=== PATIENT | male | born 1990 | race African-American/Black ===

== ENCOUNTER 2023-10-14 14:15 | Observation (INO) | payer OTHER ==
--- NOTE | 2023-10-14 14:39 | ED ---
Chest Pain HPI - General Chief Complaint: Chest Pain Stated Complaint: chest pain Time Seen by Provider: 10/14/23 14:19 Source: patient, EMS, RN notes reviewed, old records reviewed Mode of arrival: EMS Limitations: no limitations - History of Present Illness Initial Comments: This is a 33-year-old male to the ER for evaluation today. Patient presents today for evaluation regards to chest pain palpitations shortness of breath and lower extremity edema significant. Patient has long history of IV drug abuse MD Complaint: chest pain -: days(s) Onset: during rest, during exertion Pain Location: substernal Pain Radiation: none, LUE Severity: mild Severity scale (1-10): 1 Quality: tightness, heaviness Consistency: constant Improves With: nothing - Related Data Home Medications Medication Instructions Recorded Confirmed Acetaminophen Tab [Tylenol] 650 mg PO Q4H PRN 10/14/23 10/14/23 Ibuprofen [Motrin Ib] 600 mg PO Q6H PRN 10/14/23 10/14/23 Magnesium Hydroxide [Milk of 2,400 mg PO BID PRN 10/14/23 10/14/23 Magnesia] Melatonin 10 mg PO HS 10/14/23 10/14/23 PARoxetine HCL [Paxil] 40 mg PO DAILY 10/14/23 10/14/23 busPIRone HCl [Buspar] 10 mg PO TID 10/14/23 10/14/23 ondansetron HCL [Zofran] 8 mg PO Q6H PRN 10/14/23 10/14/23 traZODone HCL [Desyrel] 50 - 150 mg PO HS PRN 10/14/23 10/14/23 Allergies Allergy/AdvReac Type Severity Reaction Status Date / Time promethazine [From Phenergan] Allergy Unknown Verified 10/14/23 17:03 Review of Systems ROS Statement: Those systems with pertinent positive or pertinent negative responses have been documented in the HPI. ROS Other: All systems not noted in ROS Statement are negative. EKG Findings - EKG Comments: EKG Findings:: EKG is sinus 74 CT 119 QRS 93 QTc 384 Past Medical History Past Medical History: No Reported History History of Any Multi-Drug Resistant Organisms: None Reported Past Surgical History: No Surgical Hx Reported Past Psychological History: No Psychological Hx Reported Smoking Status: Never smoker Past Alcohol Use History: None Reported Past Drug Use History: Cocaine General Exam Limitations: no limitations General appearance: alert, in no apparent distress Head exam: Present: atraumatic, normocephalic, normal inspection Eye exam: Present: normal appearance, PERRL, EOMI. Absent: scleral icterus, conjunctival injection, periorbital swelling ENT exam: Present: normal exam, mucous membranes moist Neck exam: Present: normal inspection. Absent: tenderness, meningismus, lymphadenopathy Respiratory exam: Present: normal lung sounds bilaterally. Absent: respiratory distress, wheezes, rales, rhonchi, stridor Cardiovascular Exam: Present: regular rate, normal rhythm, normal heart sounds. Absent: systolic murmur, diastolic murmur, rubs, gallop, clicks GI/Abdominal exam: Present: soft, normal bowel sounds. Absent: distended, tenderness, guarding, rebound, rigid Extremities exam: Present: normal inspection, full ROM, normal capillary refill. Absent: tenderness, pedal edema, joint swelling, calf tenderness Back exam: Present: normal inspection Neurological exam: Present: alert, oriented X3, CN II-XII intact Psychiatric exam: Present: normal affect, normal mood Skin exam: Present: warm, dry, intact, normal color. Absent: rash Course Vital Signs 10/14/23 10/14/23 14:24 16:16 Temperature 98.1 F Pulse Rate 85 74 Respiratory 18 18 Rate Blood Pressure 128/72 126/84 O2 Sat by Pulse 98 98 Oximetry - Reevaluation(s) Reevaluation #1: 10/14/23 16:55 Medical records reviewed Reevaluation #2: 10/14/23 16:57 Patient has no change in symptoms here in the ER 7 Reevaluation #3: 10/14/23 16:57 Patient informed of results and questions answered Studies Chest x-ray is negative for acute disease Ultrasound bilateral lower extremity edema negative for acute disease Reevaluation #4: Was pt. sent in by a medical professional or institution (, PA, REHABILITATION SERVICES COORDINATOR, urgent care, hospital, or prison...) When possible be specific @ -no Did you speak to anyone other than the patient for history (EMS, parent, family, police, friend...)? What history was obtained from this source @ -no Did you review nursing and triage notes (agree or disagree)? Why? @ -agree Are old charts reviewed (outside hosp., previous admission, EMS record, old EKG, old radiological studies, urgent care reports/EKG's, prison records)? Report findings @ -yes Differential Diagnosis (chest pain, altered mental status, abdominal pain women, abdominal pain men, vaginal bleeding, weakness, fever, dyspnea, syncope, headache, dizziness, GI bleed, back pain, seizure, CVA, palpatations, mental health, musculoskeletal)? @ -prior EKG interpreted by me (3pts min.). @ -yes X-rays interpreted by me (1pt min.). @ -yes negative for acute disease CT interpreted by me (1pt min.). @ -no U/S interpreted by me (1pt. min.). @ -no What testing was considered but not performed or refused? (CT, X-rays, U/S, labs)? Why? @ -none What meds were considered but not given or refused? Why? @ -none Did you discuss the management of the patient with other professionals (professionals i.e. , PA, REHABILITATION SERVICES COORDINATOR, lab, RT, psych nurse, social work nurse, supervisor paper testing, teacher, business liaison officer, correctional case manager)? Give summary @ -no Was smoking cessation discussed for >3mins.? @ -no Was critical care preformed (if so, how long)? @ -no Were there social determinants of health that impacted care today? How? (Homelessness, low income, unemployed, alcoholism, drug addiction, transportation, low edu. Level, literacy, decrease access to med. care, alf, rehab)? @ -none Was there de-escalation of care discussed even if they declined (Discuss DNR or withdrawal of care, Hospice)? DNR status @ -no What co-morbidities impacted this encounter? (DM, HTN, Smoking, COPD, CAD, Cancer, CVA, ARF, Chemo, Hep., AIDS, mental health diagnosis, sleep apnea, morbid obesity)? @ -none Was patient admitted / discharged? Hospital course, mention meds given and route, prescriptions, significant lab abnormalities, going to OR and other pertinent info. @ - Undiagnosed new problem with uncertain prognosis? @ -no Drug Therapy requiring intensive monitoring for toxicity (Heparin, Nitro, Insulin, Cardizem)? @ -no Were any procedures done? @ -no Diagnosis/symptom? @ - Acute, or Chronic, or Acute on Chronic? @ -Acute Uncomplicated (without systemic symptoms) or Complicated (systemic symptoms)? @ -Complicated Side effects of treatment? @ -no Exacerbation, Progression, or Severe Exacerbation? @ -exacerbation Poses a threat to life or bodily function? How? (Chest pain, [place], [place], pneumonia, PE, COPD, DKA, ARF, appy, cholecystitis, CVA, Diverticulitis, Homicidal, Suicidal, threat to staff... and all critical care pts) @ -yes Reevaluation #5: Differential Palpitations Ventricular arrhythmias, atrial arrhythmias, myocardial infarction, anemia, thyrotoxicosis, electrolyte imbalance, hypokalemia, pulmonary embolism, pulmonary disease, drugs, alcohol, anxiety, stress.... This is not meant to be an all-inclusive list. - Consultations Consultation #1: Spoke with [facility] who agreed to admit this patient Chest Pain MDM - MDM 33 male will be admitted for cardiology evaluation and echo regarding significant lower extremity edema palpitations shortness of breath and chest pain with history of drug abuse and probable cardiomyopathy Disposition Clinical Impression: Atypical chest pain, Chest pain, Palpitations, Dyspnea, Bilateral leg edema Disposition: ADMITTED IP TO THIS HOSP Condition: Fair Is patient prescribed a controlled substance at d/c from ED?: No Time of Disposition: 16:40
--- NOTE | 2023-10-14 15:16 | XR ---
EXAMINATION TYPE: XR chest 2V DATE OF EXAM: 10/14/2023 COMPARISON: NONE HISTORY: Chest pain TECHNIQUE: Frontal and lateral views of the chest are obtained. FINDINGS: There is no focal air space opacity. No evidence for pneumothorax. No pleural effusion. The cardiac silhouette size is within normal limits. The osseous structures are grossly intact. IMPRESSION: 1. No acute cardiopulmonary process.
[2023-10-14 15:17] LABS: African American GFR (CKD) >90 (>60 ml/min/1.73 sqM); Albumin 3.9 g/dL (3.5-5.0); Alkaline Phosphatase 50 U/L (38-126); Anion Gap 3 mmol/L; Blood Urea Nitrogen 16 mg/dL (9-20); Calcium 9.3 mg/dL (8.4-10.2); Carbon Dioxide 25 mmol/L (22-30); Chloride 109 mmol/L (98-107); Glucose 93 mg/dL (74-99); Lipase 81 U/L (23-300); Non-African American GFR(CKD) >90 (>60 ml/min/1.73 sqM); Sodium 137 mmol/L (137-145); Total Bilirubin 0.5 mg/dL (0.2-1.3); Total Protein 6.9 g/dL (6.3-8.2)
[2023-10-14 15:18] LABS: ALT 50 U/L (4-49); AST 41 U/L (17-59); Magnesium 2.1 mg/dL (1.6-2.3); Potassium 5.1 mmol/L (3.5-5.1)
[2023-10-14 15:25] LABS: NT-Pro-B-Type Natriuretic Pept <20 pg/mL
[2023-10-14 16:09] LABS: INR 0.9 (<1.2); Partial Thromboplastin Time 23.7 sec (22.0-30.0)
[2023-10-14 17:12] LABS: Basophils % (A) 0 %; Eosinophils # (A) 0.1 k/uL (0-0.7); Eosinophils % (A) 2 %; HCT 38.9 % (39.0-53.0); HGB 12.6 gm/dL (13.0-17.5); Lymphocytes # (A) 1.6 k/uL (1.0-4.8); Lymphocytes % (A) 27 %; MCH 29.7 pg (25.0-35.0); MCHC 32.4 g/dL (31.0-37.0); MCV 91.6 fL (80.0-100.0); Mean Platelet Volume 8.5; Monocytes # (A) 0.4 k/uL (0-1.0); Monocytes % (A) 7 %; Neutrophils # (A) 3.7 k/uL (1.3-7.7); Neutrophils % (A) 62 %; Platelet Count 212 k/uL (150-450); RBC 4.24 m/uL (4.30-5.90); RDW 13.2 % (11.5-15.5)
--- NOTE | 2023-10-14 17:28 | US ---
EXAMINATION TYPE: US venous doppler duplex LE BI DATE OF EXAM: 10/14/2023 4:21 PM COMPARISON: NONE CLINICAL INDICATION: Male, 33 years old with history of edema; Edema. No hx of DVT. SIDE PERFORMED: Bilateral TECHNIQUE: The lower extremity deep venous system is examined utilizing real time linear array sonog micheline with graded compression, doppler sonography and color-flow sonography. VESSELS IMAGED: Common Femoral Vein Deep Femoral Vein Greater Saphenous Vein * Femoral Vein Popliteal Vein Small Saphenous Vein * Proximal Calf Veins (* superficial vessels) Right Leg: No evidence of DVT. Left Leg: No evidence of DVT. IMPRESSION:
[2023-10-14] MEDS: ASPIRIN 81 MG PO STA (18:34)
[2023-10-14] MEDS: MORPHINE SULFATE 4 MG/ML SYRINGE IV PRN (22:45)
[2023-10-15] MEDS: NITROGLYCERIN SL TABS 0.4 MG TAB SUBLINGUAL PRN (01:44)
[2023-10-15 09:13] VITALS: RESP 16
[2023-10-15] MEDS ORDERED: MAGNESIUM HYDROXIDE 2,400 MG/30 ML CUP PO PRN (12:47)
[2023-10-15] MEDS ORDERED: ACETAMINOPHEN TAB 325 MG TAB PO PRN (12:47)
[2023-10-15] MEDS ORDERED: IBUPROFEN 600 MG TAB PO PRN (12:47)
[2023-10-15] MEDS ORDERED: ONDANSETRON 4 MG TAB PO PRN (12:47)
--- NOTE | 2023-10-15 13:25 | HP ---
HISTORY AND PHYSICAL This is a combined history and physical and discharge summary. CHIEF COMPLAINT: Chest pain. HISTORY OF PRESENT ILLNESS: This is a 33-year-old gentleman with a past medical history of IV drug abuse, was admitted to [facility]. Apparently, the patient's sister got murdered recently. The patient is having a lot of stress and patient complained of multiple symptomatology including leg swelling. Cardiology saw the patient, recommended a stress test and 2D echo. The stress test and 2D echo is okay and cleared by Cardiology. The patient will be discharged back to [facility] for continued rehab. There is no history of any fever, rigors, or chills. PAST MEDICAL HISTORY: Reviewed include IV substance abuse, rest of the history and chart is also reviewed. HOME MEDICATIONS: Include Zofran, rest of medications reviewed. ALLERGIES: ntd FAMILY HISTORY: No history of heart disease or strokes in the family. SOCIAL HISTORY: History of substance abuse. REVIEW OF SYSTEMS: A 14-point review is negative except as mentioned earlier. PHYSICAL EXAMINATION: VITAL SIGNS: Pulse 63, blood pressure 117/79, and respirations 16. CHEST: Clear to auscultation. CARDIOVASCULAR: S1, S2. ABDOMEN: Soft. LEGS: No edema, no swelling. NERVOUS SYSTEM: Nonfocal. SKIN: No ulcer, rash, or bleeding. JOINTS: No active deforming arthropathy. LABORATORY DATA: Reviewed. ASSESSMENT: 1. Chest pain for evaluation, rule out coronary artery disease. 2. History of IV substance abuse. 3. Social stressors and depression. 4. Anemia, normocytic, mild. RECOMMENDATIONS AND DISCUSSION: This 33-year-old gentleman presented with multiple medical issues. At this time, I recommended to continue current medications. I would follow the patient closely with a 2D echo and stress echo. If the 2D echo and stress echo are normal, the patient can be discharged back to [facility] today. Please refer to the previous discharge medication reconciliation for list of medications. I would also recommend close followup with primary physician regarding followup of above-mentioned medical issues. Overall prognosis guarded, but currently the patient is stable. Discussed with the patient who understands. MMODL / IJN: [id number] / MTDD
--- NOTE | 2023-10-15 13:58 | CA ---
Stress Echo Report Rufus Case Age: 33 Gender: M : 1990 Exam Date: 10/15/2023 11:39 Exam Location: [facility] Ht (in): 69 Wt (lb): 190 Ordering Physician: Andie Henry Referring Physician: [id number] Paraprofessional: Myrna Steele RDCS Technologist Procedure CPT: Indication: Chest Pain ICD-9 Codes: Rhythm: Patient History: CHEST PAIN, DIFFICULTY IN BREATHING, PALPITATIONS, NUMBNESS IN FACE/NECK, FAMILY HX OF HEART DISEASE Cardiac Medications: Medications in past 24 hours: Contrast: Stress Results Protocol: Valerio Total dose(mL): Exercise Duration (min:sec): 10:[address] Depression (mm): Angina Score: Blair Score: METS: 13.0 Resting HR: 97 Resting BP: 133 / 73 Peak HR: 165 Peak BP: 168 / 65 Max Predicted HR: 188 88 % Max Predicted HR Target HR: 160 Double Product: [id number] Stress Summary: The patient's target heart rate was achieved BP Response: Reason for Termination: MAX EXERTION/TARGET HR Cardiac Symptoms: CHEST PAIN DURING EXERCISE AND RECOVERY ECG Analysis Resting ECG: Normal sinus rhythm, normal ECG Stress ECG: No abnormal ST/T wave changes with exercise Arrhythmia: None Echo Analysis Resting Echo: Normal resting echocardiogram. Peak Echo Analysis: Normal treadmill stress echocardiogram. MEASUREMENTS (Male/Female) Normal Values CONCLUSIONS 1. Good exercise tolerance 2. Normal electrocardiographic response to exercise 3. Normal stress echocardiogram with no evidence of stress- induced ischemia Dr. Janelle Sidhu MD (Electronically Signed) Final Date: 15 Oct 2023 13:57
--- NOTE | 2023-10-15 14:05 | P.CRDCN ---
History of Present Illness Consult date: 10/15/23 Reason for Consult (text): Questionable cardiomyopathy History of present illness: History of present illness: This is a 33-year-old male with past medical history of substance abuse with crack cocaine. Patient normally follows with a clinic in [place]. He does not have a brazer resistance and has not had a cardiology workup in the past. Patient apparently was at [facility]. His last drug use of crack was 2 months ago. He developed chest pain while he was in group therapy and was sitting. He also developed shortness of breath, sweats. He states he has never had this sensation before. Pain is worse with deep breathing. He does complain of dizziness and palpitations. He denies history of hypertension or diabetes. He states he has had some lower extremity edema for the last couple of days and his legs were hurting him. He denies any fever or chills and no cough. Patient also complains of chronic blood in his urine. No history of CVA or stroke. No blood in his stools. Patient denies history of smoking and no alcohol abuse. EKG sinus rhythm with nonspecific T wave changes. Chest x-ray: No acute finding WBC 6, hemoglobin 12.6. INR 0.9. Troponin negative x 3. Creatinine 0.97, potassium 5.1. proBNP less than 20. Home cardiac medications: None Review Of Systems: At the time of my exam: CONSTITUTIONAL: Denies fever or chills. HEENT: Denies blurred vision, vision changes, or eye pain. Denies hemoptysis CARDIOVASCULAR: Denies chest pain. Denies orthopnea. Denies PND. Denies palpitations RESPIRATORY: Denies shortness of breath. GASTROINTESTINAL: Denies abdominal pain. Denies nausea or vomiting. HEMATOLOGIC: Denies bleeding disorders. GENITOURINARY: Denies any blood in urine. SKIN: Denies pruitis. Denies rash. Physical examination: Gen: This is a 33-year-old male in no acute distress VS: reviewed, blood pressure 130/75, heart rate 58, pulse ox 95% on room air. HEENT: Head is atraumatic, normocephalic. Pupils equal, round. Sclerae is anicteric. NECK: Supple. No JVD. LUNGS: Clear to auscultation. No wheezes or rhonchi. No intercostal retractions. HEART: Regular rate and rhythm. No murmur. Positive chest wall tenderness. ABDOMEN: Soft No tenderness. EXTREMITIES: No pedal edema. No calf tenderness. NEUROLOGICAL: Patient is awake, alert and oriented x3. Assessment: Atypical chest pain, acute coronary syndrome ruled out Substance abuse with crack Plan: Resume patient's home cardiac medications Obtain stress echocardiogram reported good exercise tolerance, normal electrocardiographic response to exercise, normal stress echocardiogram with no evidence of stress-induced ischemia. Obtain 2-D echocardiogram and Doppler study to assess cardiac structure and function If testing is unremarkable, patient is cleared for discharge from cardiology and may follow-up with his primary care physician. Thank you kindly for this consultation. Nurse practitioner note has been reviewed, I agree with documented findings and plan of care. Patient was seen and examined. Past Medical History Past Medical History: No Reported History History of Any Multi-Drug Resistant Organisms: None Reported Past Surgical History: No Surgical Hx Reported Past Psychological History: No Psychological Hx Reported Smoking Status: Never smoker Past Alcohol Use History: None Reported Past Drug Use History: Cocaine Medications and Allergies Home Medications Medication Instructions Recorded Confirmed Type Acetaminophen Tab [Tylenol] 650 mg PO Q4H PRN 10/14/23 10/14/23 History Ibuprofen [Motrin Ib] 600 mg PO Q6H PRN 10/14/23 10/14/23 History Magnesium Hydroxide [Milk of 2,400 mg PO BID PRN 10/14/23 10/14/23 History Magnesia] Melatonin 10 mg PO HS 10/14/23 10/14/23 History PARoxetine HCL [Paxil] 40 mg PO DAILY 10/14/23 10/14/23 History busPIRone HCl [Buspar] 10 mg PO TID 10/14/23 10/14/23 History ondansetron HCL [Zofran] 8 mg PO Q6H PRN 10/14/23 10/14/23 History traZODone HCL [Desyrel] 50 - 150 mg PO HS PRN 10/14/23 10/14/23 History Allergies Allergy/AdvReac Type Severity Reaction Status Date / Time promethazine [From Phenergan] Allergy Unknown Verified 10/14/23 17:03 Physical Exam Vitals: Vital Signs Temp Pulse Resp BP Pulse Ox 10/15/23 06:30 58 L 96 H 130/75 95 10/15/23 05:29 67 19 127/81 99 10/15/23 02:00 63 16 116/64 96 10/15/23 01:40 59 L 18 125/69 96 10/14/23 21:43 65 16 119/60 95 10/14/23 16:16 74 18 126/84 98 10/14/23 14:24 98.1 F 85 18 128/72 98 Results 10/14/23 17:05 10/14/23 14:55 Cardiac Enzymes 10/14/23 10/14/23 10/14/23 Range/Units 14:55 14:55 17:30 AST 41 (17-59) U/L Troponin I 0.025 <0.012 (0.000-0.034) ng/mL 10/14/23 Range/Units 21:09 AST (17-59) U/L Troponin I <0.012 (0.000-0.034) ng/mL Coagulation 10/14/23 Range/Units 15:37 PT 10.0 (10.0-12.5) sec APTT 23.7 (22.0-30.0) sec CBC 10/14/23 10/14/23 Range/Units 14:55 17:05 WBC LOAN ADMINISTRATOR 6.0 RBC LOAN ADMINISTRATOR 4.24 L Hgb LOAN ADMINISTRATOR 12.6 L Hct LOAN ADMINISTRATOR 38.9 L Plt Count LOAN ADMINISTRATOR 212 Comprehensive Metabolic Panel 10/14/23 Range/Units 14:55 Sodium 137 (137-145) mmol/L Potassium 5.1 (3.5-5.1) mmol/L Chloride 109 H (98-107) mmol/L Carbon Dioxide 25 (22-30) mmol/L BUN 16 (9-20) mg/dL Creatinine 0.97 (0.66-1.25) mg/dL Glucose 93 (74-99) mg/dL Calcium 9.3 (8.4-10.2) mg/dL AST 41 (17-59) U/L ALT 50 H (4-49) U/L Alkaline Phosphatase 50 (38-126) U/L Total Protein 6.9 (6.3-8.2) g/dL Albumin 3.9 (3.5-5.0) g/dL Current Medications Generic Name Dose Route Start Last Admin Trade Name Freq PRN Reason Stop Dose Admin Aspirin 325 mg 10/15/23 09:00 Aspirin 325 Mg Tab PO DAILY NORA Atorvastatin Calcium 80 mg 10/15/23 09:00 Atorvastatin 80 Mg Tab PO DAILY [facility] Morphine Sulfate 4 mg 10/14/23 16:47 10/15/23 05:34 Morphine Sulfate 4 Mg/Ml Syringe IV 4 mg Q4HR PRN Administration Chest Pain Nitroglycerin 0.4 mg 10/14/23 16:47 10/15/23 01:44 Nitroglycerin Sl Tabs 0.4 Mg Tab SUBLINGUAL 0.4 mg Q5M PRN Administration Chest Pain 10/14/23 17:05 10/14/23 14:55
[2023-10-15] MEDS: ASPIRIN 325 MG TAB PO SCH (14:12)
[2023-10-15] MEDS: ATORVASTATIN 80 MG TAB PO SCH (14:12)
[2023-10-15] MEDS: busPIRone HCl 10 MG TAB PO SCH (14:16)
[2023-10-15] MEDS: PARoxetine 20 MG TAB PO SCH (14:16)
[2023-10-15 14:55] VITALS: BP 119/70; PULSE 76; TEMP 98.4
[2023-10-15] MEDS ORDERED: MELATONIN 5 MG TABLET PO SCH (21:00)
[2023-10-15 22:22] LABS: LDL Cholesterol,Calculated 140.7 mg/dL (0.0-131.0)
--- NOTE | 2023-10-16 07:12 | CA ---
Transthoracic Echo Report Name: Rufus Case Age: 33 Gender: M : 1990 Exam Date: 10/14/2023 17:06 Exam Location: [facility] Ht (in): 69 Wt (lb): 200 Ordering Physician: Abelardo Palma DO Attending/Referring Phys: [id number], Louie Wire Wrapper Machine Operator Marina Tay RDCS Procedure CPT: Indications: cm Cardiac Hx: Technical Quality: Good Contrast 1: Definity Total Dose (mL): 2 Contrast 2: Total Dose (mL): MEASUREMENTS (Male / Female) Normal Values 2D ECHO LV Diastolic Diameter PLAX 5.5 cm 4.2 - 5.9 / 3.9 - 5.3 cm LV Systolic Diameter PLAX 4.2 cm IVS Diastolic Thickness 1.2 cm 0.6 - 1.0 / 0.6 - 0.9 cm LVPW Diastolic Thickness 1.3 cm 0.6 - 1.0 / 0.6 - 0.9 cm LV Relative Wall Thickness 0.5 RV Internal Dim ED PLAX 2.6 cm LA Systolic Diameter LX 3.9 cm 3.0 - 4.0 / 2.7 - 3.8 cm LV Diastolic Volume MOD BP 107.4 cm??? 67 - 155 / 56 - 104 cm??? LV Systolic Volume MOD BP 53.0 cm??? / 19 - 49 cm??? LV Ejection Fraction MOD BP 50.7 % >= 55 % LV Cardiac Index MOD BP 1613.5 cm???/min???m??? LV Diastolic Volume MOD 4C 136.6 cm??? LV Systolic Volume MOD 4C 68.6 cm??? LV Ejection Fraction MOD 4C 49.7 % LV Cardiac Index MOD 4C 2015.1 cm???/min???m??? LV Diastolic Length 4C 7.3 cm LV Systolic Length 4C 6.1 cm LV Diastolic Volume MOD 2C 79.7 cm??? LV Systolic Volume MOD 2C 40.4 cm??? LV Ejection Fraction MOD 2C 49.3 % LV Cardiac Index MOD 2C 1165.2 cm???/min???m??? LV Diastolic Length 2C 6.8 cm LV Systolic Length 2C 6.0 cm LA Volume 63.9 cm??? / 22 - 52 cm??? LA Volume Index 30.1 cm???/m??? 16 - 28 cm???/m??? M-MODE Aortic Root Diameter MM 2.7 cm LA Systolic Diameter MM 3.7 cm LA Ao Ratio MM 1.4 AV Cusp Separation MM 2.1 cm DOPPLER MV Area PHT 2.3 cm??? Mitral E Point Velocity 83.8 cm/s Mitral A Point Velocity 57.9 cm/s Mitral E to A Ratio 1.4 MV Deceleration Time 333.5 ms FINDINGS Left Ventricle Left ventricular ejection fraction is estimated at 50-55 %. Mildly increased left ventricular wall thickness. Borderline systolic function Right Ventricle Normal right ventricular size. Right Atrium Mild right atrial dilatation. Left Atrium Mobile intra-atrial septum. Mildly increased left atrial volume. Mitral Valve Structurally normal mitral valve. Mild mitral regurgitation. Aortic Valve Trileaflet aortic valve. No aortic stenosis. No aortic regurgitation. Tricuspid Valve Structurally normal tricuspid valve. Trace tricuspid regurgitation. No evidence of pulmonary hypertension. Pulmonic Valve Structurally normal pulmonic valve. Trace pulmonic regurgitation. No pulmonic stenosis. Pericardium No pericardial or pleural effusion. Aorta Normal size aortic root and proximal ascending aorta. CONCLUSIONS 1. Left ventricular systolic function borderline normal 2. Mild mitral regurgitation Previewed by: Dr. Janelle Sidhu MD (Electronically Signed) Final Date: 16 Oct 2023 07:11
--- NOTE | 2023-10-16 10:05 | P.DS ---
Providers Date of admission: 10/14/23 16:49 Expected date of discharge: 10/15/23 Attending physician: Leroy Pozo Consults: 10/14/23 16:47 Consult Physician Urgent Consulting Provider: Janelle Sidhu Consult Reason/Comments: CM Do you want consulting provider notified?: Yes Primary care physician: Stated None Hospital Course: Final diagnosis Chest pain, ruled out coronary artery disease, stress test was negative History of IV substance abuse Social stressors and depression Anemia, normocytic, mild GI prophylaxis DVT prophylaxis Full code Discharge disposition Patient is being discharged in a stable condition with guarded prognosis to [place] for continued inpatient rehab. Patient will follow-up with his primary care provider in [place] in the outpatient setting upon discharge. Patient is to continue with current medications and close outpatient follow-up with primary care provider as well as cardiology where he resides. Total time taken is greater than 35 minutes. Hospital course This is a 33-year-old male who was recently admitted with chest pain being closely monitored. Patient had negative troponins and evaluated by cardiology recommending stress echo. Stress test was normal with no evidence of ischemia. 2D echo displayed an EF of 50 to 55% with mildly increased left ventricular wall thickness and borderline systolic function. Patient also noted to have mild right atrial dilatation with mobile intra-atrial septum mildly increased left atrial volume, trace tricuspid regurgitation with no evidence of pulmonary hypertension with a trace pulmonic regurgitation with no pericardial or pleural effusions noted. Patient does have family history of cardiac issues and strongly recommend risk factor modifications along with cardiology follow-up in the outpatient setting. Patient has been cleared by cardiology for discharge. Please refer to cardiology notes for further HPI. Patient will be discharged back to [place] rehab. Currently no reports of chest pain, shortness of breath, or palpitations. Patient is afebrile. No reports of nausea or vomiting and patient is tolerating diet. Patient will be discharged to [place] rehab today. Guarded prognosis given significant social issues. Physical exam: Gen: This is a 33-year-old male who is awake, alert and oriented x 3, well- developed, well-nourished HEENT: Head is atraumatic, normocephalic. Pupils equal, round. Sclerae is anicteric. NECK: Supple. No JVD. No lymphadenopathy. No thyromegaly. LUNGS: Clear to auscultation. No wheezes or rhonchi. No intercostal retractions. HEART: S1, S2 are muffled ABDOMEN: Soft. Bowel sounds are present. No masses. No tenderness. EXTREMITIES: No pedal edema. No calf tenderness. NEUROLOGICAL: Patient is awake, alert and oriented x3. Cranial nerves 2 through 12 are grossly intact. Please refer to medication reconciliation sheet for a list of medications. The impression and plan of care has been dictated by Alexa Hatfield, Nurse Practitioner as directed. Dr. Sánchez MD I have performed a history and examination and MDM of this patient, discussed the same with the dictator, and agree with the dictator's assessment and plan as written ,documented as a scribe. Based on total visit time, I have performed more than 50% of the visit. Patient Condition at Discharge: Fair Plan - Discharge Summary Discharge Rx Participant: Yes New Discharge Prescriptions: New Pantoprazole [Protonix] 40 mg PO DAILY #30 tab Atorvastatin [Lipitor] 80 mg PO DAILY #30 tab Nitroglycerin Sl Tabs [Nitrostat] 0.4 mg SUBLINGUAL Q5M PRN #10 tab PRN Reason: Chest Pain Continue traZODone HCL [Desyrel] 50 - 150 mg PO HS PRN PRN Reason: Insomnia Melatonin 10 mg PO HS busPIRone HCl [Buspar] 10 mg PO TID ondansetron HCL [Zofran] 8 mg PO Q6H PRN PRN Reason: Nausea And Vomiting Acetaminophen Tab [Tylenol] 650 mg PO Q4H PRN PRN Reason: Pain Ibuprofen [Motrin Ib] 600 mg PO Q6H PRN PRN Reason: Pain Magnesium Hydroxide [Milk of Magnesia] 2,400 mg PO BID PRN PRN Reason: Gi Upset PARoxetine HCL [Paxil] 40 mg PO DAILY Discharge Medication List Acetaminophen Tab [Tylenol] 650 mg PO Q4H PRN 10/14/23 [History] Ibuprofen [Motrin Ib] 600 mg PO Q6H PRN 10/14/23 [History] Magnesium Hydroxide [Milk of Magnesia] 2,400 mg PO BID PRN 10/14/23 [History] Melatonin 10 mg PO HS 10/14/23 [History] PARoxetine HCL [Paxil] 40 mg PO DAILY 10/14/23 [History] busPIRone HCl [Buspar] 10 mg PO TID 10/14/23 [History] ondansetron HCL [Zofran] 8 mg PO Q6H PRN 10/14/23 [History] traZODone HCL [Desyrel] 50 - 150 mg PO HS PRN 10/14/23 [History] Atorvastatin [Lipitor] 80 mg PO DAILY #30 tab 10/15/23 [Rx] Nitroglycerin Sl Tabs [Nitrostat] 0.4 mg SUBLINGUAL Q5M PRN #10 tab 10/15/23 [Rx] Pantoprazole [Protonix] 40 mg PO DAILY #30 tab 10/15/23 [Rx] Follow up Appointment(s)/Referral(s): None,Stated [Primary Care Provider] - 1-2 days Activity/Diet/Wound Care/Special Instructions: Patient okay for discharge to [place] for continued inpatient rehab Follow-up with primary care provider on discharge Follow-up cardiology outpatient in [place] Continue heart healthy diet Discharge Disposition: OTHER INSTITUTION NOT DEFINED
== END 2023-10-15 15:29 | disposition other institution (70) ==
LOC: EC 14:15 → 6NMEDSUR 16:49
PROVIDERS: ADMIT Hospitalist; ATTEND Hospitalist
DX: R07.89 Other chest pain (principal); F32.A Depression, unspecified; D64.9 Anemia, unspecified; I51.7 Cardiomegaly; Z79.899 Other long term (current) drug therapy; F14.11 Cocaine abuse, in remission
CPT/HCPCS: 96365; 96366; 99285; 36415; 93005 ×2; 93306; 93351; 83880; 80061; 80053; 83690; 83735; 84484; 85025; 85610; 85730; 71046; 93970; G0378 ×2; J2270 ×2; Q9957